=== PATIENT | male | born 1930 | race Caucasian/White ===

== ENCOUNTER 2018-08-14 23:22 | Inpatient (IN) | payer MEDICARE, OTHER ==
[~2018-08-14] VITALS: Ht 177.8 cm; Wt 72.2 kg
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
[2018-08-14 23:51] VITALS: BP 130/67
[2018-08-15] MEDS ORDERED: DONEPEZIL HCL10 MG PO (00:21)
[2018-08-15] MEDS ORDERED: NAMENDA10 MG PO (00:22)
[2018-08-15] MEDS ORDERED: LANOXIN125 MCG PO (00:22)
[2018-08-15] MEDS ORDERED: BENADRYL50 MG PO (00:23)
[2018-08-15] MEDS ORDERED: ACETAMINOPHEN325 MG PO (00:24)
[2018-08-15 00:27] VITALS: BP 130/67; BMI 25.9
--- NOTE | 2018-08-15 02:54 | NUR ---
PATIENT ARRIVED AT 23:30 FROM THE [facility] , BROUGHT BY AND DAUGHTER, AGRESSION WITH AT THE [facility], CALM AND COOPERATIVE ON ADMIT, CODE STATUS IS FULL CODE PER DAUGHTER AND POA, CODE WORD IS KAREEN RETREAT, CONSENTS SIGNED, PHYSICIAN AWARE, WILL CONTINUE TO MONITOR.
[2018-08-15 03:42] LABS: APPEARANCE CLEAR (CLEAR); BILIRUBIN NEGATIVE (NEGATIVE); COLOR YELLOW (YELLOW); GLUCOSE NEGATIVE (NEGATIVE); KETONE NEGATIVE (NEGATIVE); NITRITE NEGATIVE (NEGATIVE); PROTEIN NEGATIVE (NEGATIVE); UROBILINOGEN NORMAL (NORMAL)
[2018-08-15 05:32] LABS: BASOPHILS 0.1 % (0-2); EOSINOPHILS 0.9 % (0-7); HEMATOCRIT 41.4 % (42.0-54.0); HEMOGLOBIN 14.1 g/dL (13.5-17.5); IMMATURE GRANULOCYTES 0.3 % (0-5); LYMPHOCYTES 25.6 % (15-50); MCH 30.4 pg (26.0-34.0); MCHC 34.1 g/dL (31.0-37.0); MCV 89.2 fL (80.0-100.0); MEAN PLATELET VOLUME 9.4 fL (7.4-10.4); MONOCYTES 8.1 % (2-11); PLATELET COUNT 157 10x3/uL (130-400); RBC 4.64 10x6/uL (4.20-6.10); RDW 13.9 % (11.5-14.5)
[2018-08-15 06:01] LABS: ALBUMIN 3.2 g/dL (3.4-5.0); ALKALINE PHOSPHATASE 69 U/L (46-116); ALT (SGPT) 18 U/L (10-68); BILIRUBIN - TOTAL 0.77 mg/dL (0.2-1.3); CALC OSMOLALITY 284 mosm/kg (275-300); CALCIUM 8.7 mg/dL (8.5-10.1); CARBON DIOXIDE 25.1 mmol/L (21.0-32.0); CHLORIDE - SERUM 107 mmol/L (98-107); CHOLESTEROL, TOTAL 170 mg/dL (0-200); DIGOXIN 0.24 ng/mL (0.90-2.00); GLUCOSE 102 mg/dL (74-106); HDL CHOLESTEROL 56 mg/dL (32-96); LDL CHOLESTEROL 101 mg/dL (0-100); LDL-HDL RATIO 1.8 ratio (1.5-3.5); POTASSIUM - SERUM 4.1 mmol/L (3.5-5.1); PROTEIN - SERUM 6.7 g/dL (6.4-8.2); SODIUM 141 mmol/L (136-145); THYROID STIMULATING HORMONE 1.58 uIU/mL (0.36-3.74); TRIGLYCERIDE 65 mg/dL (30-200); UREA NITROGEN 23 mg/dL (7-18); eGFR NON AFRICAN AMERICAN 75 mL/min (90-120)
--- NOTE | 2018-08-15 06:45 | NUR ---
WANDERING INTO OTHER PATIENT'S ROOMS, REQUIRING FREQUENT INTERVENTION AND RE-DIRECTION.
--- NOTE | 2018-08-15 08:00 | NUR ---
AGITATION AND AGGRESSION TOWARDS STAFF NOTED. ATIVAN 0.5 MG AND HALDOL 2 MG ADMIN IM LEFT DELTOID.
--- NOTE | 2018-08-15 08:45 | NUR ---
RESTING QUIETLY IN RECLINER, BREAKFAST COMPLETE, CALM AT THIS TIME.
--- NOTE | 2018-08-15 10:41 | NUR ---
RESTING IN RECLINER IN DAYROOM, DROWSY, CALM, QUIET. NO FURTHER AGGRESSION NOTED. SPOUSE PHONED TO CHECK ON PATIENT'S CONDITION. AWAITING MED ORDERS, CONT POC INCLUDING GROUP THERAPY AND MEDICATIONS ORDERED.
[2018-08-15 14:07] VITALS: BMI 25.8
[2018-08-15 20:07] VITALS: BP 170/75
--- NOTE | 2018-08-15 21:52 | NUR ---
B) patient is alert and oriented to self, very confused, VIEJAS, difficult to redirect, wanders and invades others personal space, I) Administered scheduled medications as orderd, monitored for safety, crushed medications, R) Mediation compliant, restless and wanders, P) Continue plan of care.
--- NOTE | 2018-08-16 10:00 | NUR ---
RECEIVED PATIENT IN DINING ROOM FOR B'FAST, ALERT, RESTLESS, PACING ABOUT UNIT, SHAKING DOORS ATTEMPTING TO EXIT, RE-DIRECTS EASILY. MEDS ADMIN WITH COMPLETE MED COMPLIANCE NOTED. PRESENT FOR GROUP ACTIVITY, BUT PACES ABOUT DAYROOM. CONT POC INCLUDING MEDS AND GROUP THERAPY DIRECTED.
[2018-08-16 19:59] VITALS: BP 130/90
--- NOTE | 2018-08-16 21:37 | NUR ---
RECEIVED IN DAYROOM. WANDERING AROUND. CALM AND COOPERATIVE WITH CARE AND ASSESSMENT. NO AGGRESSIVE BEHAVIOR. REDIRECT AND REORIENT NEEDED. RESTING IN BED WITH EYES CLOSED AT THIS TIME. CONTINUE PLAN OF CARE.
--- NOTE | 2018-08-17 08:00 | NUR ---
AWAKE AND ALERT AT NURSES DESK, BUT VERY CONFUSED. HE COULD NOT VERBALIZE HIS NAME. CALM AND COOPERATIVE WITH CARE AND ASSESSMENT. NO AGGRESSION AT THIS TIME. MEDICATION COMPLIANT CRUSHED IN APPLESAUCE. FALL PRECAUTIONS IN PLACE. WILL CONTINUE PLAN OF CARE.
[2018-08-17 08:29] VITALS: BP 134/71
[2018-08-17 10:30] VITALS: Ht 177.8 cm; Wt 72.2 kg
--- NOTE | 2018-08-17 13:05 | NUR ---
ATIVAN 0.5 MG PO GIVEN FOR AGITATION WITH REDIRECTION.
--- NOTE | 2018-08-17 20:30 | NUR ---
PATIENT ANXIOUS. CONTINUOUSLY ATTMEPTING TO STAND WITHOUT ASSIST. ALARM SOUNDING. UNABLE TO BE REDIRECTED. RESISTIVE TO REDIRECTION. PRN ATIVAN 0.5 MG PO GIVEN FOR ANXIETY.
--- NOTE | 2018-08-17 21:15 | NUR ---
PRN ATIVAN INEFFECTIVE. PATIENT CONTINUES TO BECOME MORE ANXIOUS. CONTINUES TO GET UP WITHOUT ASSIST. YELLS AT STAFF WITH REDIRECTION.
[2018-08-17 22:23] VITALS: BP 143/68
--- NOTE | 2018-08-17 22:37 | NUR ---
RECEIVED IN HALLWAY OUTSIDE OF NURSES STATION. RESTING IN RECLINER WITH EYES OPEN. CALM AND COOPERATIVE WITH CARE AND ASSESSMENT. NO AGGRESSIVE BEHAVIORS. REDIRECT AND REORIENT NEEDED. RESTING IN BED WITH EYES CLOSED AT THIS TIME. CONTINUE PLAN OF CARE.
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
--- NOTE | 2018-08-18 04:30 | NUR ---
PRN INEFFECTIVE. PATIENT CONTINUES TO EXHIBIT ANXIETY. PATIENT RESISTIVE TO REDIRECTION. PATIENT CONTINUOUSLY ATTEMPTING TO GET UP WITHOUT ASSIST. RESISTIVE TO REDIRECTION.
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
--- NOTE | 2018-08-18 18:23 | NUR ---
PATIENT IS AWAKE ANS ALERT, BUT VERY CONFUSED. HE IS CALM WITH ASSESSMENT, BUT GETS ANXIOUS WITH ADL'S AND REDIRECTION. AT TIMES HE YELLS AT STAFF. PROVIDE PRESCRIBED MEDS. COMPLIANT WITH MEDS CRUSHED IN APPLESAUCE. WILL CONTINUE POC.
--- NOTE | 2018-08-18 20:40 | NUR ---
RECEIVED IN [facility]. LAYING IN A RECLINING CHAIR WITH STAFF BY HIS SIDE ONE ON ONE BY HIS SIDE FOR SAFETY. VERY CONFUSED. INCREASING ANXIETY. PRN ATIVAN 0.5 MG GIVEN FOR INCREASING ANXIETY. CONTINUES ONE ON ONE CARE FOR SAFETY. CONTINUE PLAN OF CARE
--- NOTE | 2018-08-18 21:48 | NUR ---
RESTING IN RECLINER WITH EYES CLOSED AT THIS TIME.
[2018-08-19 07:18] LABS: RAPID PLASMA REAGIN Non Reactive (Non Reactive); VITAMIN D 25 HYDROXY 15.5 ng/mL (30.0-100.0)
[2018-08-19 07:42] VITALS: BP 132/66
[2018-08-19 11:13] LABS: FOLATE (FOLIC ACID) - SERUM 11.6 ng/mL (>3.0)
[2018-08-19 20:00] VITALS: BP 113/92
--- NOTE | 2018-08-19 23:06 | NUR ---
RECEIVED IN HALLWAY OUTSIDE OF NURSES STATION. WANDERING AROUND. CALM AND COOPERATIVE WITH CARE AND ASSESSMENT. NO AGGRESSIVE BEHAVIORS. REDIRECT AND REORIENT NEEDED. RESTING IN BED WITH EYES CLOSED AT THIS TIME. CONTINUE PLAN OF CARE.
[2018-08-20 08:01] VITALS: BP 142/67
--- NOTE | 2018-08-20 09:00 | NUR ---
PATIENT ALERT, RESTLESS, PACING, CONFUSED, REQUIRES FREQUENT RE-DIRECTION NOT TO AMBULATE UNASSISTED. UNSTEADY GAIT/POOR BALANCE. MEDS ADMIN PER ORDERS WITH COMPLETE MED COMPLIANCE NOTED. COOPERATIVE WITH CARE AND STAFF ASSIST. CONT POC INCLUDING MEDS AND GROUP THERAPY DIRECTED.
--- NOTE | 2018-08-20 12:48 | NUR ---
PATIENT AGITATED, AGGRESSIVE TOWARD OTHER PATIENTS. ATIVAN 0.5 MG ADMIN IM . LINDY WELL.
--- NOTE | 2018-08-20 14:06 | NUR ---
Nutrition follow-up: Diet: Regular PO intake ~75-100% of most meals Labs reviewed Wt: 161# +BM RDN following.
[2018-08-20 20:20] VITALS: BP 126/64
--- NOTE | 2018-08-20 21:51 | NUR ---
B) Patient is alert and oriented to self, very confused and wants to wander, unsteady and resistant to redirection. I) Administered scheduled medications as ordered, redirected as needed, monitored for safety R) Mediation compliant, restless at times P) Continue plan of care.
[2018-08-21 07:37] VITALS: BP 132/65
[2018-08-21 20:00] VITALS: BP 177/77
--- NOTE | 2018-08-21 22:49 | NUR ---
B) Patient is alert and oriented to self, very confused and wanders at times, restless and thinks he has to do something at times, I) Administered scheduled medications as ordered, redirected as needed, monitored for safety, R) Medications compliant, resting with eyes closed in bed now, P) Continue plan of care.
[2018-08-22 08:41] VITALS: BP 120/57
--- NOTE | 2018-08-22 08:48 | PN ---
PATIENT:JOSE ALFREDO RAJPUT MEDICAL RECORD: [id number] LOCATION:[facility] ADMISSION DATE: 08/14/18 PROGRESS NOTE DATE OF SERVICE: 08/21/2018 SUBJECTIVE: Mr. Rajput is an 87-year-old male, who [facility], alert and oriented times 1. He has gotten agitated to her when she tried to redirect with his ADLs. The patient until a few days ago was requiring frequent p.r.n.'s at night, now less so. He is by report sleeping throughout the night and has required no p.r.n.'s in the last few days. He is a fall risk as he is unsteady and he is not able to respond to redirection whatsoever or understand that he needs to walk with assist. He is eating 50/50 at 75%. Last bowel movement on . OBJECTIVE: LATEST VITAL SIGNS: 98.4, 82, 16, 132/65, and 98%. ASSESSMENT: Unchanged. PLAN: We will continue to monitor for behaviors. If his lack of aggression continues, we will consider discharge; however, the patient will remain somewhat of a fall risk secondary to his just physical and balance issues. Case discussed with nursing, chart reviewed and patient interviewed. TRANSINT:[id number] Voice Confirmation ID: [id number] DOCUMENT ID: [id number] JOSE F AQUINO MD at 0848 CC: [id number] DICTATION DATE: 08/21/18 1410 VACUUM METALIZING SUPERVISOR: 08/21/18 1513 ADM IN [place] [id number] [place] [id number]
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
--- NOTE | 2018-08-22 11:45 | NUR ---
B) The patient is confused. He knows his name only. He wanders and he is pleasant, but he does try all the doors and he bangs on them quite hard and tries to jerk on them to open them. He does not understand simple commands. He knows his name, but has poor insight into his situation. I) Provide prescribed meds, redirect as needed. R) The patient is complaint with meds and unit milieu. P) Continue POC.
--- NOTE | 2018-08-22 16:00 | NUR ---
The patient's asked me "What has he been diagnosed with?" Did look at Dr. Limon's psychiatric consult. Let her know that Dr. Limon says he has Alzhimer's." She said "Oh, ok. I just can not take him with him like that, will someone help us with finding places that will be good for him?" Explained to her that Matti Mueller will assist her with names of places and then they can check them out and decide. She said "Ok"
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
[2018-08-22 20:21] VITALS: BP 141/78
--- NOTE | 2018-08-23 07:30 | NUR ---
REC'D PT IN HALLWAY WANDERING. ALERT TO PERSON ONLY. CALM AND COOPERATIVE WITH ASSESSMENT. REDIRECT AND REORIENT NEEDED. NO AGGRESSION NOTED AT THIS TIME. MED COMPLIANT. FALL PRECAUTIONS IN PLACE. WILL CPOC.
[2018-08-23 08:00] VITALS: BP 122/81
--- NOTE | 2018-08-23 20:59 | NUR ---
RECEIVED IN DAYROOM. SITTING IN A CHAIR WITH PEERS AT HIS SIDE. CALM AND COOPERATIVE WITH CARE AND ASSESSMENT. NO SIGNS OF AGGRESSION. REDIRECT AND REORIENT NEEDED. CONTINUES TP SIT CALMLY. CONTINUE PLAN OF CARE
[2018-08-23 23:51] VITALS: BP 138/80
--- NOTE | 2018-08-24 07:30 | NUR ---
REC'D PT PACING IN HALLWAY. CALM AND COOPERATIVE WITH ASSESSMENT. NO AGGRESSION NOTED. PT IS ALERT AND ORIENTED TO PERSON ONLY. REDIRECT AND REORIENT NEEDED. MED COMPLIANT. FALL PRECAUTIONS IN PLACE. WILL CPOC.
[2018-08-24 08:52] VITALS: BP 172/55
--- NOTE | 2018-08-24 14:53 | PN ---
PATIENT:JOSE ALFREDO GREER MEDICAL RECORD: [id number] LOCATION:[facility] ADMISSION DATE: 08/14/18 PROGRESS NOTE DATE OF SERVICE: 08/23/2018 SUBJECTIVE: The patient's case was discussed with staff. He has no new complaint. OBJECTIVE: The patient is in good behavioral control. He has very poor insight about his condition. ASSESSMENT: Senile dementia of the Alzheimer's type with behavioral disturbances. PLAN: The patient will have his Remeron discontinued. Remeron has a significant antihistaminic effect and that is a relative contraindication in individuals with dementia. TRANSINT:[id number] Voice Confirmation ID: [id number] DOCUMENT ID: [id number] TONI PRATER MD at 1453 CC: [id number] DICTATION DATE: 08/23/18 1540 FIRER LOCOMOTIVE CRANE: 08/23/18 1636 ADM IN [facility] [address] [place] [address]
[2018-08-24 20:06] VITALS: BP 160/85
--- NOTE | 2018-08-25 04:12 | NUR ---
RECEIVED IN DAYROOM. WANDERING AROUND. CALM AND COOPERATIVE WITH CARE AND ASSESSMENT. NO AGGRESSIVE BEHAVIORS. REDIRECT AND REORIENT NEEDED. RESTING IN BED WITH EYES CLOSED AT THIS TIME. CONTINUE PLAN OF CARE.
--- NOTE | 2018-08-25 07:30 | NUR ---
REC'D PT IN HALLWAY WANDERING. PT IS ALERT AND ORIENTED TO PERSON ONLY. CALM AND COOPERATIVE WITH ASSESSMENT. PT IS VERY CONFUSED. MED COMPLIANT. REDIRECT AND REORIENT NEEDED. FALL PRECAUTIONS IN PLACE. WILL CPOC.
[2018-08-25 08:32] VITALS: BP 170/88
--- NOTE | 2018-08-25 14:35 | NUR ---
PATIENT WANDERING ABOUT DAYROOM, VERY RESTLESS AND DIFFICULT TO REDIRECT. ATIVAN 0.5 MG PO GIVEN TO PATIENT.
--- NOTE | 2018-08-25 15:05 | PN ---
PATIENT:JOSE ALFREDO GREER MEDICAL RECORD: [id number] LOCATION:[facility] ADMISSION DATE: 08/14/18 PROGRESS NOTE DATE OF SERVICE: 08/24/2018 SUBJECTIVE: The patient's case was discussed with staff. He has no new complaint. OBJECTIVE: The patient is quite confused and only oriented to person today. He has very limited insight about his situation. He has not been aggressive today. ASSESSMENT: Senile dementia of the Alzheimer's type with behavioral disturbances. PLAN: Current medicines have been reviewed and will be maintained. Long-term prognosis is guarded. I am going to discontinue his Lamictal secondary to the lack of clinical indication that I can perceive. TRANSINT:[id number] Voice Confirmation ID: [id number] DOCUMENT ID: [id number] TONI PRATER MD at 1505 CC: [id number] DICTATION DATE: 08/24/18 1516 FRONT DESK WORKER: 08/24/18 1525 ADM IN [place] [id number] [place] [id number]
--- NOTE | 2018-08-25 20:58 | NUR ---
RECEIVED IN HALLWAY. SITTING IN WHEELCHAIR. VERY CONFUSED. NO SIGNS OF AGGRESSION. REDIRECT AND REORIENT NEEDED. RESTING QUIETLY IN BED AT THIS TIME. CONTINUE PLAN OF CARE
--- NOTE | 2018-08-26 08:00 | NUR ---
REC'D PT PACING IN HALLWAY AWAITING BREAKFAST. RESP EVEN AND NONLABORED. NO ACUTE DISTRESS NOTED. PATIENT ORIENTED TO SELF ONLY. WANDERS AT TIMES. TRYING TO OPEN THE DOORS. MED COMPLIANT. WILL CONT PLAN OF CARE.
--- NOTE | 2018-08-26 13:17 | PN ---
PATIENT:JOSE ALFREDO GREER MEDICAL RECORD: [id number] LOCATION:[facility] ADMISSION DATE: 08/14/18 PROGRESS NOTE DATE OF SERVICE: 08/25/2018 SUBJECTIVE: The patient's case was discussed with staff. He has no new complaint. OBJECTIVE: The patient denies intent to harm himself or others. He is tolerating his medicines well. Eye contact is fair. ASSESSMENT: Senile dementia of the Alzheimer's type with behavioral disturbances. PLAN: The patient had some significant agitation today. I am going to treat him with a low dose of Trilafon. He will be monitored for clinical changes associated with it. TRANSINT:[id number] Voice Confirmation ID: [id number] DOCUMENT ID: [id number] TONI PRATER MD at 1317 CC: [id number] DICTATION DATE: 08/25/18 1547 RETAIL SUPPORT ASSOCIATE: 08/25/18 1554 ADM IN [place] [address] [place] [id number]
--- NOTE | 2018-08-26 19:14 | NUR ---
PATIENT WANDERING IN DAY AREA. NO ACUET DISTRESS NOTED. RESP EVEN AND NONLABORED. HELD PATIENT LISINPRIL 20 MG DUE TO BLOOD PRESSURE: 90/60. NO BEHAVIORS NOTED OTHER THAN AMBULATING. WILL CONT PLAN OF CARE.
--- NOTE | 2018-08-26 19:37 | NUR ---
RECEIVED IN HALLWAY OUTSIDE OF NURSES STATION. VERY CONFUSED. WANDERING AROUND. CALM AND COOPERATIVE WITH CARE AND ASSESSMENT. NO AGGRESSIVE BEHAVIOR. REDIRECT AND REORIENT NEEDED. CONTINUES TO WANDER AROUND AT THIS TIME. CONTINUE PLAN OF CARE.
--- NOTE | 2018-08-27 07:45 | NUR ---
REC'D PATIENT WANDERING IN ROOM THIS AM. RESP EVEN AND NONLABORED. NO ACUTE DISTRESS NOTED. REDIRECT AND REORIENT NEEDED. PAIENT ALERT TO SELF ONLY. PT WANDERS ATTEMPTING TO OPEN DOORS. MED COMPLIANT. WILL CONT PLAN OF CARE. CALL LIGHT IN REACH.
--- NOTE | 2018-08-27 10:20 | NUR ---
NURSE ADMINISTERED ATIVAN 0.[address] PRATER ORDER. PATIENT TOLERATED WELL. WILL REASSES Q 1 HOUR.
--- NOTE | 2018-08-27 11:30 | NUR ---
PATIENT IS NOT ANXIETY PREVIOUSLY. PRN EFFECTIVE AT THIS TIME.
--- NOTE | 2018-08-27 13:47 | PN ---
PATIENT:JOSE ALFREDO GREER MEDICAL RECORD: [id number] LOCATION:[facility] ADMISSION DATE: 08/14/18 PROGRESS NOTE DATE OF SERVICE: 08/26/2018 SUBJECTIVE: The patient's case was discussed with staff. He has no new complaint. OBJECTIVE: The patient is sleeping well. He is eating reasonably well. He wanders a great deal and engages in exit seeking behavior. Attempts to redirect him are usually effective if they are done in a patient and considerate way. At other times, he can become quite agitated. ASSESSMENT: Senile dementia of the Alzheimer's type with behavioral disturbances. PLAN: The patient is tolerating medicines well. I anticipate he can be returned to the [facility] soon. His lives there. He is probably more appropriate for a more restrictive dementia unit; but given the circumstances, his is not going to want to be from him and I think it is not unreasonable to give him another trial there, although I must say I am not optimistic it is going to be very successful, but I am making every effort I can to keep him and his together consistent with safety of others. TRANSINT:[id number] Voice Confirmation ID: [id number] DOCUMENT ID: [id number] TONI PRATER MD at 1347 CC: [id number] DICTATION DATE: 08/26/18 1647 LACE INSPECTOR: 08/26/18 2201 ADM IN [facility] [address] [place] [address]
--- NOTE | 2018-08-27 18:49 | NUR ---
PATIENT SITTING IN CHAIR WITH EYES CLOSED. RESP EVEN AND NONLABORED. NO ACUTE DISTRESS NOTED. PATIENT PACING ALL DAY AND IS EASILY REDIRECTED AT TIMES. MED COMPLIANT. EATS MEALS WHEN DIRECTED. WILL CONT PLAN OF CARE.
[2018-08-27 23:17] VITALS: BP 148/91
--- NOTE | 2018-08-28 01:18 | NUR ---
B) Patient is alert and oriented to self, very confused and wanders, misunderstands everything, I) Administered scheduled medications as ordered, monitored for safety, redirected as needed, R) Mediation compliant, calm but difficult to redirect. P) Continue plan of care.
--- NOTE | 2018-08-28 07:45 | NUR ---
RECIEVED PT PACING HALLWAY. PT WANDERS INTO OTHER PATIENT ROOMS. VERY HARD TO REDIRECT. CONFUSED AND ORIENTED TO SELF. NONSKID SOCKS ON. NO AGGRESSION NOTED. WILL CONT TO MONITOR.
[2018-08-28 09:21] VITALS: BP 156/71
--- NOTE | 2018-08-28 12:46 | NUR ---
Nutrition follow-up: Diet: Regular PO intake ~75% average of meals No new wt +BM PO intake good at this time. RDN following.
--- NOTE | 2018-08-28 14:15 | PN ---
PATIENT:JOSE ALFREDO GREER MEDICAL RECORD: [id number] LOCATION:[facility] ADMISSION DATE: 08/14/18 PROGRESS NOTE DATE OF SERVICE: 08/27/2018 SUBJECTIVE: The patient's case was discussed with staff. He has no new complaint. OBJECTIVE: The patient denies intent to harm himself or others. He tolerates his medicines well. Eye contact is poor. He did have some aggression with the nurse today, but I am not sure if that was an isolated event. I am going to maintain his current medicines, which I have reviewed, and will try hard not to add additional medications to his regimen if it is possible to do so. TRANSINT:[id number] Voice Confirmation ID: [id number] DOCUMENT ID: [id number] TONI PRATER MD at 1415 CC: [id number] DICTATION DATE: 08/27/18 1529 TITLE SUPERVISOR: 08/27/182021 ADM IN [place] [address] [place] [address]
--- NOTE | 2018-08-28 18:20 | NUR ---
PATIENT SITTING IN RECLINER CHAIR WITH EYES CLOSED. RESP EVEN AND NONLABORED. NO ACUTE DISTRESS NOTED. AMBULATE WITH ASSISTANCE. CONFUSED ONRIENTED TO SELF ONLY. MED COMPLIANT. PT REC'D A SHOWER AND TOLERATED WELL. CHAIR ALARM IN PLACE AND ACTIVE. WILL CONT PLAN OF CARE. WILL CONT TO MONITOR Q 15 MINS FOR SAFETY.
[2018-08-28 20:00] VITALS: BP 130/70
--- NOTE | 2018-08-28 22:52 | NUR ---
PATIENT IS CONFUSED, PLEASANT, HAS TO BE REDIRECTED OVER AND OVER, COMPLIANT WITH MEDS, NO ADVERSE REACTION NOTED. WILL FOLLOW POC
--- NOTE | 2018-08-29 07:50 | NUR ---
RESTING QUIETLY IN BED ON RIGHT SIDE.
--- NOTE | 2018-08-29 10:13 | NUR ---
ASSESSMENT COMPLETE. DISORIENTED TO TIME,PLACE AND SITUATION. BRUISING NOTED TO BILAT ARMS. WHEN ASKED QUESTIONS, ANSWERS WITH INAPPROPRIATE WORDS. WANDERS FREQUENTLY IN HALLWAY.
--- NOTE | 2018-08-29 10:36 | PN ---
PATIENT:JOSE ALFREDO GREER MEDICAL RECORD: [id number] LOCATION:[facility] ADMISSION DATE: 08/14/18 PROGRESS NOTE DATE OF SERVICE: 08/28/2018 SUBJECTIVE: The patient's case was discussed with staff. He has no new complaint. OBJECTIVE: The patient is in good behavioral control. He is tolerating his medicines well. Eye contact is fair. ASSESSMENT: Senile dementia of the Alzheimer's type with behavioral disturbances. PLAN: Current medicines and therapies have been reviewed, both will be maintained. I anticipate he can be transitioned out of the hospital today. TRANSINT:[id number] Voice Confirmation ID: [id number] DOCUMENT ID: [id number] TONI PRATER MD at 1036 CC: [id number] DICTATION DATE: 08/28/18 153 DATA SCIENCES DIRECTOR: 08/28/18 2209 ADM IN [place] [id number] [place] [id number]
--- NOTE | 2018-08-29 12:00 | NUR ---
NO CHANGES NOTED AT THIS TIME.
--- NOTE | 2018-08-29 15:38 | NUR ---
VISITING WITH FAMILY.
[2018-08-29 20:00] VITALS: BP 126/66
--- NOTE | 2018-08-30 02:57 | NUR ---
B) Patient is alert and oriented to self, very confused, misunderstands everything, wanders at times, I) Administered scheduled medications as, monitored for safety, R) medication compliant, pleasant toward staff, P) Continue plan of care.
[2018-08-30 07:00] VITALS: BP 109/56
--- NOTE | 2018-08-30 09:40 | PN ---
PATIENT:JOSE ALFREDO GREER MEDICAL RECORD: [id number] LOCATION:[facility] ADMISSION DATE: 08/14/18 PROGRESS NOTE DATE OF SERVICE: 08/29/2018 SUBJECTIVE: The patient's case was discussed with staff. He has no new complaint. OBJECTIVE: The patient is in good behavioral control. He has limited insight about his situation. He is tolerating his medicines well. ASSESSMENT: Senile dementia of the Alzheimer's type with behavioral disturbances. PLAN: Current medicines have been reviewed and will be maintained. His long-term prognosis is guarded. TRANSINT:[id number] Voice Confirmation ID: [id number] DOCUMENT ID: [id number] TONI PRATER MD at 0940 CC: [id number] DICTATION DATE: 08/29/18 1215 COMMUNITY YOUTH SECRETARY: 08/29/18 1653 ADM IN [place] [id number] [place] [id number]
--- NOTE | 2018-08-30 12:57 | NUR ---
RECEIVED PATIENT IN DINING ROOM THIS MORNING FOR B'FAST, ALERT, CALM, VERY CONFUSED. MEDS ADMIN PER ORDERS WITH COMPLETE MED COMPLIANCE NOTED. COOPERATIVE WITH GROUP AND STAFF REQUESTS. CONT POC DIRECTED.
[2018-08-30 20:08] VITALS: BP 125/68
--- NOTE | 2018-08-30 21:18 | NUR ---
RECEIOVED IN DINING AREA. WALKING ABOUT. CONFUSED. CALM AND COOPERATIVE WITH CARE AND ASSESSMENT. NO SIGNS OF AGGRESSION. REDIRECT AND REORIENT NEEDED. CONTINUES TO WALK ABOUT DAY AREA. CONTINUE PLAN OF CARE
[2018-08-31 07:00] VITALS: BP 127/63
--- NOTE | 2018-08-31 11:37 | NUR ---
RECEIVED PATIENT IN DINING ROOM FOR B'FAST, ALERT, RESTLESS, PACING ABOUT UNIT, VERY FORGETFUL. MEDS ADMIN PER ORDERS WITH COMPLETE MED COMPLIANCE NOTED. COOPERATIVE, RE-DIRECTS EASLIY. CONT POC DIRECTED.
--- NOTE | 2018-08-31 14:35 | PN ---
PATIENT:JOSE ALFREDO GREER MEDICAL RECORD: [id number] LOCATION:[facility] ADMISSION DATE: 08/14/18 PROGRESS NOTE DATE OF SERVICE: 08/30/2018 SUBJECTIVE: The patient's case was discussed with staff. He has no new complaint. OBJECTIVE: The patient is eating and sleeping well. He has not been aggressive. I anticipate that if this level of improvement maintains, he can be discharged soon. ASSESSMENT: Senile dementia of the Alzheimer's type with behavioral disturbances. PLAN: The patient will be transitioned out of the hospital and to the assisted living center soon. His long-term prognosis is guarded. TRANSINT:[id number] Voice Confirmation ID: [id number] DOCUMENT ID: [id number] TONI PRATER MD at 1435 CC: [id number] DICTATION DATE: 08/30/18 0952 MANAGER OF DATA: 08/30/18 1348 ADM IN [facility] [address] [place] [address]
[2018-08-31] MEDS ORDERED: PERPHENAZINE2 MG PO (15:47)
[2018-08-31] MEDS ORDERED: NAMENDA5 MG PO (15:47)
[2018-08-31] MEDS ORDERED: Aricept PO (15:47)
[2018-08-31] MEDS ORDERED: MELATONIN 3 MG1 TAB PO (15:48)
[2018-08-31] MEDS ORDERED: SENNA8.6 MG PO (15:48)
[2018-08-31] MEDS ORDERED: VITAMIN D5000 UNIT PO (15:48)
[2018-08-31] MEDS ORDERED: MEGACE40 MG PO (15:48)
--- NOTE | 2018-08-31 20:19 | NUR ---
RECEIVED IN DAYROOM. VERY CONFUSED. WANDERING AROUND. CALM AND COOPERATIVE WITH CARE AND ASSESSMENT. NO AGGRESSIVE BEHAVIORS. INTRUSIVE AT TIMES. REDIRECT AND REORIENT NEEDED. CONTINUES TO WANDER AROUND DAYROOM AT THIS TIME. CONTINUE PLAN OF CARE.
[2018-09-01 02:22] VITALS: BP 136/84
[2018-09-01 08:00] VITALS: BP 97/54
--- NOTE | 2018-09-01 09:41 | PN ---
PATIENT:JOSE ALFREDO GREER MEDICAL RECORD: [id number] LOCATION:[facility] ADMISSION DATE: 08/14/18 PROGRESS NOTE DATE OF SERVICE: 08/31/2018 SUBJECTIVE: The patient's case was discussed with staff. He has no new complaint. The patient is not eating particularly well and it is with difficulty that the staff can get him to consume about half of what is offered to him. He is quite confused. ASSESSMENT: Senile dementia of the Alzheimer's type with behavioral disturbances. PLAN: The patient is going to be started on Megace to assist with his appetite suppression. He will be monitored for clinical changes associated with its use. His long-term prognosis is guarded. TRANSINT:[id number] Voice Confirmation ID: [id number] DOCUMENT ID: [id number] TONI PRATER MD at 0941 CC: [id number] DICTATION DATE: 08/31/18 145 GRAVITY METER OBSERVER: 08/31/18 1459 ADM IN [place] [id number] [place] [address]
--- NOTE | 2018-09-01 11:30 | NUR ---
DISCHARGED TO [facility]. BELONGINGS COLLECTED AND SENT WITH PATIENT. ATTEMPTED PHONE CALL TO - NO ANSWER.
--- NOTE | 2018-09-02 12:50 | PN ---
PATIENT:JOSE ALFREDO GREER MEDICAL RECORD: [id number] LOCATION:[facility] ADMISSION DATE: 08/14/18 PROGRESS NOTE DATE OF SERVICE: 09/01/2018 SUBJECTIVE: The patient's case was discussed with staff. He has no new complaint. OBJECTIVE: The patient denies intent to harm himself or others. He has been in good behavioral control. He is sleeping and eating reasonably well. ASSESSMENT: Senile dementia of the Alzheimer's type with behavioral disturbances. PLAN: The patient will be transitioned out of the hospital today. His long-term prognosis is guarded. TRANSINT:[id number] Voice Confirmation ID: [id number] DOCUMENT ID: [id number] TONI PRATER MD at 1250 CC: [id number] DICTATION DATE: 09/01/18 0954 CITY ENGINEER: 09/01/18 1020 DIS IN 09/01/18 [facility] [address] [place] [address]
== END 2018-09-01 11:30 | disposition home or self-care (01) | DRG 57 ==
LOC: D.PSYCH 23:22
PROVIDERS: ADMIT Psychiatry & Neurology Psychiatry; ATTEND Psychiatry & Neurology Psychiatry
DX: G30.1 Alzheimer's disease with late onset (principal); F02.81 Dementia in other diseases classified elsewhere, unspecified severity, with behavioral disturbance; I49.9 Cardiac arrhythmia, unspecified; G47.00 Insomnia, unspecified; K59.00 Constipation, unspecified; E55.9 Vitamin D deficiency, unspecified; R03.0 Elevated blood-pressure reading, without diagnosis of hypertension; H91.90 Unspecified hearing loss, unspecified ear

== ENCOUNTER 2018-12-10 13:23 | Inpatient (IN) | payer MEDICARE ==
[~2018-12-10] VITALS: Ht 182.9 cm; Wt 65.3 kg
[~2018-12-10 13:23] MED LIST: ACETAMINOPHEN325 MG PO; Aricept PO; BENADRYL50 MG PO; DONEPEZIL HCL10 MG PO; LANOXIN125 MCG PO; MEGACE40 MG PO; MELATONIN 3 MG1 TAB PO; NAMENDA10 MG PO; NAMENDA5 MG PO; PERPHENAZINE2 MG PO; SENNA8.6 MG PO; VITAMIN D5000 UNIT PO
--- NOTE | 2018-12-10 18:11 | NUR ---
PATIENT ARRIVED TO UNIT ACCOMPANIED BY SPOUSE AND DTR. SPOUSE SIGNED CONSENTS. NO VALUABLES. VITAL SIGNS AND WEIGHT MEASURED. T 97.0, B/P 122/56, P 88, R 18, SPO2 96%. WEIGHT 144 LBS.
[2018-12-10] MEDS ORDERED: LANOXIN125 MCG PO (23:38)
[2018-12-10] MEDS ORDERED: MEGACE40 MG PO (23:39)
[2018-12-10] MEDS ORDERED: MELATONIN10 M1 PO (23:39)
[2018-12-10] MEDS ORDERED: NAMENDA5 MG PO (23:40)
[2018-12-10] MEDS ORDERED: SENNA LAXATIVE8.6 MG PO (23:41)
[2018-12-10] MEDS ORDERED: PERPHENAZINE4 MG PO (23:41)
[2018-12-10] MEDS ORDERED: RESTORIL7.5 MG PO (23:42)
[2018-12-10] MEDS ORDERED: VITAMIN D31000 UNIT PO (23:43)
--- NOTE | 2018-12-11 01:13 | NUR ---
PT ADMITTED TO UNIT FOR WANDERING, INCREASED CONFUSION, SLINGING POOP AND IS COMBATIVE WITH ADL'S. HIS CODE STATUS IS A DNR. HIS CODE WORD IS KAREEN RETREAT. HE IS ALERT AND ORIENTED TO SELF ONLY. HE AMBULATES BY HISELF. HIS VALUABLES HAVE BEEN LABELED WITH PT STICKER AND SENT TO LOCKED STORAGE. HE IS CALM BUT DIFFICULT TO REDIRECT. WILL CONTINUE TO MONITOR.
[2018-12-11 01:24] VITALS: BP 122/56; BMI 20.7
[2018-12-11 07:56] LABS: BASOPHILS 0.2 % (0-2); EOSINOPHILS 1.1 % (0-7); HEMATOCRIT 39.9 % (42.0-54.0); HEMOGLOBIN 13.9 g/dL (13.5-17.5); IMMATURE GRANULOCYTES 0.3 % (0-5); LYMPHOCYTES 18.8 % (15-50); MCH 30.8 pg (26.0-34.0); MCHC 34.8 g/dL (31.0-37.0); MCV 88.3 fL (80.0-100.0); MEAN PLATELET VOLUME 9.9 fL (7.4-10.4); NEUTROPHILS 70.6 % (40-80); PLATELET COUNT 176 10x3/uL (130-400); RBC 4.52 10x6/uL (4.20-6.10); RDW 13.8 % (11.5-14.5); WBC 9.7 10x3/uL (4.8-10.8)
[2018-12-11 08:33] LABS: ALBUMIN 3.3 g/dL (3.4-5.0); ANION GAP 14.9 mmol/L (8-16); BILIRUBIN - TOTAL 1.25 mg/dL (0.2-1.3); CALCIUM 8.6 mg/dL (8.5-10.1); CARBON DIOXIDE 24.2 mmol/L (21.0-32.0); CHOL - HDL RATIO 4.1 ratio (2.3-4.9); CREATININE - SERUM 1.2 mg/dL (0.6-1.3); LDL-HDL RATIO 2.9 ratio (1.5-3.5); POTASSIUM - SERUM 4.1 mmol/L (3.5-5.1); PROTEIN - SERUM 6.4 g/dL (6.4-8.2); THYROID STIMULATING HORMONE 2.01 uIU/mL (0.36-3.74)
[2018-12-11 09:08] VITALS: BMI 20.6
[2018-12-11 09:36] VITALS: BP 78/60
--- NOTE | 2018-12-11 11:10 | NUR ---
B) The patient is awake and he ambulates independently. He has poor insight into his situation. He did have a fall and has a skin tear on his right elbow. I) Notified Jill Dyer, Special Education Educational Assistant and Latasha Krause APN, and the patient's family at 1117, Spoke to the son in law at 1130 and let him know that the patient fell and sustained a skin tear. He was appreciative that we called him. R) The patient is calm, but nervous. P) Continue POC.
[2018-12-11 16:26] VITALS: Ht 182.9 cm; Wt 65.3 kg
--- NOTE | 2018-12-11 21:25 | NUR ---
PATIENT IS CONFUSED, WANDERS AROUND, HARD TO REDIRECT, COMPLIANT WITH MEDS. NEEDS HELP WIHT ADL'S. WILL FOLLOW POC
[2018-12-11 21:26] VITALS: BP 120/51
--- NOTE | 2018-12-12 07:40 | NUR ---
B) The patient is awake and he is ambulating. He is confused and has poor insight into his situation. He knows his name, but he does not know his surroundings or time. He has not shown any aggression, but he does try all of the doors and if he is not closely monitored he gets into the trash and other things and can make a mess. I) Provide prescribed meds. R) The patient is usually good about taking his meds crushed in food or pudding. P) Continue POC.
[2018-12-12 19:05] VITALS: BP 112/60
[2018-12-12 20:36] VITALS: BP 102/53
--- NOTE | 2018-12-12 21:27 | NUR ---
PATIENT IS CONFUSED, WANDERS AIMLESSLY AT TIMES, COMPLIANT WITH MEDS, DOES NOT MAKE NEEDS KNOWN, WILL FOLLOW POC
[2018-12-13 08:00] VITALS: BP 144/101
--- NOTE | 2018-12-13 09:00 | NUR ---
PATIENT SITTING IN CHAIR AWAITING BREAKFAST. STAFF MEMBER ATTEMPT TO ASSIST PATIENT TO SIT BACK FURTHER IN THE CHAIR. PT BECAME COMBATIVE WITH STAFF MEMBER, YELLING OUT, SPITING AT STAFF. UNABLE TO REDIRECT AT THAT TIME. ATIVAN 0.5 MG AND HALDOL 2 MG IM GIVEN PER DR. PRATER ORDER. WILL REASSESS Q 1 HOUR.
--- NOTE | 2018-12-13 10:00 | NUR ---
PT CALM AT THIS TIME. PRN EFFECTIVE. ALLOWED STAFF MEMEBER TO CHANGE BANDAGES TO ARM WHERE SKIN TEAR IS. CLEAN AND WRAPPED.
--- NOTE | 2018-12-13 18:38 | NUR ---
NURSE CHANGED PT BANDAGES DUE TO BLEEDING AROUND THE BANDAGE. MEPILEX APPLIED AND WRAPPED.
--- NOTE | 2018-12-13 19:58 | NUR ---
RECEIVED IN DAYROOM, SITTING IN A CHAIR AT THE TABLE. PEERS AT HIS SIDE. CALM AND COOPERATIVE WITH CARE AND ASSESSMENT. CONFUSED. REDIRECT AND REORIENT NEEDED. CONTINUES TO SIT CALMLY. CONTINUE PLAN OF CARE
[2018-12-13 22:48] VITALS: BP 102/50
[2018-12-14 08:00] VITALS: BP 143/63
--- NOTE | 2018-12-14 17:17 | NUR ---
RECEIVED PT THIS MORNING AT B'FAST, CONFUSED, CALM. MEDS CRUSHED AND MIXED WITH PUDDING AND ADMIN PER ORDERS WITH COMPLETE MED COMPLIANCE NOTED. COOPERATIVE, NO AGGRESSION NOTED. CONT POC DIRECTED.
[2018-12-14 20:23] VITALS: BP 181/93
--- NOTE | 2018-12-14 21:41 | NUR ---
RECEIVED IN DAYROOM. SITTING AT TABLE WITH PEERS AT HIS SIDE. CALM AND COOPERATIVE WITH CARE AND ASSESSMENT. REDIRECT AND REORIENT NEEDED. CONTINUES TO SIT CALMLY IN DAYROOM. CONTINUE PLAN OF CARE
[2018-12-15 08:00] VITALS: BP 170/90
--- NOTE | 2018-12-15 10:00 | NUR ---
LE- RECEIVED PT IN DINING ROOM FOR B'FAST, APPETITE POOR, CONFUSED, CALM, REMOVES CLOTHING. MEDS ADMIN PER ORDERS WITH COMPLETE MED COMPLIANCE NOTED. COOPERATIVE WITH PLAN OF CARE. CONT POC DIRECTED.
[2018-12-15 20:10] VITALS: BP 135/85
--- NOTE | 2018-12-15 20:31 | NUR ---
RECEIVED IN DAYROOM. SITTING IN A CHAIR WITH PEERS AT HIS SIDE. CALM AND COOPERATIVE WITH CARE AND ASSESSMENT. REDIRECT AND REORIENT NEEDED. CONTINUES TO SIT CALMLY IN CHAIR. CONTINUE PLAN OF CARE
[2018-12-16 09:11] VITALS: BP 175/74
--- NOTE | 2018-12-16 16:41 | NUR ---
PT. RECEIVED IN DINING ROOM AT B'FAST, RESTING QUIETLY IN RECLINER, EYES CLOSED, AROUSES TO VOICE AND TOUCH, ORIENTED TO SELF. MEDS ADMIN PER ORDERS, COMPLIANT WITH MEDS. COOPERATIVE, NO AGGRESSION OR ADVERSE BEHAVIORS NOTED. CONT POC DIRECTED.
[2018-12-16 20:55] VITALS: BP 110/71
--- NOTE | 2018-12-16 23:46 | NUR ---
REC'D SITTING IN THE DAYROOM. EYES CLOSED. NOT ACKNOWLEDGING STAFF WHEN APPROACHED. NO INTERACTION WITH PEERS. APPEARS TO MOSTLY SLEEP. ADMINISTER MEDS PER ORDERS Q SHIFT AND MONITOR COMPLIANCE. PROMPT PATIENT TO INTERACT WITH STAFF AND PEERS. MED COMPLIANT. CONTINUES TO LAY WITH EYES CLOSED AND DOES NOT INTERACT VERBALLY. CONTIMUE POC AND PROVIDE SAFE ENVIRONMENT.
--- NOTE | 2018-12-17 10:00 | NUR ---
PATIENT IS VERY DROWSY AND LEGERATIC THIS SHIFT. WILL RESPOND TO VOICE AND TOUCH. NURSE HELD MEDICATIONS DUE TO PT BEING DROWSY. MAX ASSIST WITH ADLS. PT FED WITH MEALS. PT IS FRIENDLY. NONCOMBATIVE WITH STAFF. CHAIR ALARM IN PLACE AND ACTIVE.
--- NOTE | 2018-12-17 10:41 | NUR ---
NUTRITION F/U PT ON REG DIET, ENSURE WITH MEALS. RECEIVING MEGACE. PO INTAKE VARIES FROM MEAL TO MEAL. NOTE WT INCREASE FROM ADMIT WT OF 144#. WILL CONTINUE TO PROVIDE DIET AND ENSURE. MONITOR PO INTAKE AND WT. RD FOLLOWING
--- NOTE | 2018-12-17 12:00 | NUR ---
SPOKE WITH TRI DALE ABOUT PATIENT DISCHARGE PLACEMENT AND CURRENT MEDICATIONS. EXPLAINED THE MED ADJUSTMENT AND ADDED MEDS. VERBALIZED UNDERSTANDING. NURSE TOLD HER SHE WOULD PASS ALONG FOR HER TO GET IN TOUCH WITH HER WHEN BACK IN THE OFFICE. VERBALZIED UNDERSTANDING.
[2018-12-17 20:01] VITALS: BP 119/64
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
[2018-12-18 08:30] VITALS: BP 149/66
--- NOTE | 2018-12-18 12:07 | NUR ---
Held the digoxin as his pulse is 59.
[2018-12-18 14:33] LABS: BASOPHILS 0.1 % (0-2); EOSINOPHILS 2.2 % (0-7); IMMATURE GRANULOCYTES 0.5 % (0-5); MCH 31.4 pg (26.0-34.0); MCHC 34.1 g/dL (31.0-37.0); MCV 91.9 fL (80.0-100.0); MONOCYTES 9.7 % (2-11); NEUTROPHILS 72.5 % (40-80); PLATELET COUNT 175 10x3/uL (130-400); RBC 4.46 10x6/uL (4.20-6.10); RDW 13.9 % (11.5-14.5)
[2018-12-18 14:50] LABS: ALBUMIN 2.8 g/dL (3.4-5.0); ALKALINE PHOSPHATASE 82 U/L (46-116); ALT (SGPT) 22 U/L (10-68); BILIRUBIN - TOTAL 0.76 mg/dL (0.2-1.3); CALC OSMOLALITY 294 mosm/kg (275-300); CALCIUM 8.5 mg/dL (8.5-10.1); CARBON DIOXIDE 24.9 mmol/L (21.0-32.0); CHLORIDE - SERUM 108 mmol/L (98-107); DIGOXIN 0.36 ng/mL (0.90-2.00); GLUCOSE 162 mg/dL (74-106); POTASSIUM - SERUM 4.1 mmol/L (3.5-5.1); PROTEIN - SERUM 6.2 g/dL (6.4-8.2); SODIUM 143 mmol/L (136-145); UREA NITROGEN 29 mg/dL (7-18); eGFR NON AFRICAN AMERICAN 75 mL/min (90-120)
[2018-12-18 20:00] VITALS: BP 130/65
--- NOTE | 2018-12-18 23:38 | NUR ---
B.) PT IS ALERT AND ORIENTED TO SELF ONLY. HIS SPEECH IS GARBLED. HE IS RECIEVED IN HIS ANURAG-CHAIR. HE IS PLEASANT WHEN SPOKEN TOO BUT OFTEN IS WITHDRAWN. I.) PROVIDED PM MEDICATION. R.) COMPLIANT WITH ALL MEDICATION. P.) CONTINUE PLAN OF CARE
--- NOTE | 2018-12-19 07:24 | NUR ---
B) The patient is sitting in the hallway, he is sleeping. He has poor insight into his situation. He does say a few words. He has not shown aggression at this time. I) Provide prescribed meds. R) The patient does not follow simple direction. P) Continue POC.
[2018-12-19 08:00] VITALS: BP 90/71
--- NOTE | 2018-12-19 15:24 | NUR ---
The patient has a skin tear to the right hand with a dressing. Dressing is soiled. Cleansed the skin tear area and changed the dressing. Shaved and cleansed the patient's face.
[2018-12-19 21:05] VITALS: BP 136/64
--- NOTE | 2018-12-19 21:15 | NUR ---
B.) PT IS ALERT WHEN STIMULATED, HE IS ORIENTED TO SELF ONLY. HE IS RECIEVED IN HIS ANURAG-CHAIR. I.) PROVIDED PM MEDICATIONS. R.) COMPLIANT WITH ALL MEDICATIONS. P.) CONTINUE PLAN OF CARE
[2018-12-20 08:00] VITALS: BP 124/68
--- NOTE | 2018-12-20 17:00 | NUR ---
GRANDSON CAME TO VISIT DURING VISITATION TIME. DAUGHTER AND SPOUSE CALLED TO GET UPDATE ON PATIENT'S CONDITION.
--- NOTE | 2018-12-20 17:19 | NUR ---
RECEIVED PT IN DINING ROOM AT B'FAST, APPETITE FAIR FOR B'FAST REQUIRING FEEDING. HOWEVER, BY SUPPER, PATIENT WAS ABLE TO FEED SELF AND APPETITE WAS GOOD. COMPLIANT WITH MEDS. COOPERATIVE, NO AGGRESSION NOTED. CONT POC DIRECTED.
--- NOTE | 2018-12-20 19:13 | NUR ---
RECEIVED IN DAYROOM. SITTING IN A CHAIR AT THE TABLE. NOT SOCIALIZING. CONFUSED. CALM AND COOPERATIVE WITH CARE AND ASSESSMENT. REDIRECT AND REORIENT NEEDED. CONTINUES TO SIT CALMLY AT TABLE. CONTINUE PLAN OF CARE
[2018-12-20 22:56] VITALS: BP 101/60
--- NOTE | 2018-12-21 06:41 | NUR ---
CONVOLUTED FOAM CHAIR PAD PLACED UNDER PATIENT IN CHAIR.
[2018-12-21 08:00] VITALS: BP 153/72
--- NOTE | 2018-12-21 10:00 | NUR ---
RECEIVED PT IN DINING ROOM AT B'FAST TIME, AWAKE, APPETITE POOR, COOPERATIVE WITH MEDS WITH 100% COMPLIANCE NOTED. NO AGGRESSION NOTED. SPOUSE CALLED THIS MORNING FOR PATIENT UPDATE. CONT POC DIRECTED. PT CONFUSED. DRESSING TO WOUNDS CDI. REPOSITIONED IN RECLINER FOR COMFORT.
--- NOTE | 2018-12-21 12:27 | PN ---
PATIENT:JOSE ALFREDO RAJPUT MEDICAL RECORD: [id number] LOCATION:[facility] ADMISSION DATE: 12/10/18 PROGRESS NOTE DATE OF SERVICE: 12/12/2018 SUBJECTIVE: Mr. Rajput is an 88-year-old male, former patient here who was readmitted because he was wandering, increasing confusion, slinging his own feces, combative with ADLs. On interview today, he is calm, pleasant, quite confused, but eating well. Nursing reports that he is exit seeking. He does not lack assist with toileting or any care, but will redirect. He also will dig in the trash if he is not monitored closely. He slept 8.75 hours; eating 50, 65, and 100% and last bowel movement on the . OBJECTIVE: LATEST VITAL SIGNS: 98.1, 74, 18, 120/51 and 99%. ASSESSMENT: Unchanged. PLAN: Continue current treatment plan. Continue to assess the patient's aggression and agitation versus side effects of medication. Case discussed with nursing. Chart reviewed and the patient interviewed. TRANSINT:[id number] Voice Confirmation ID: [id number] DOCUMENT ID: [id number] JOSE F AQUINO MD at 1227 CC: [id number] DICTATION DATE: 12/12/18 1343 JUVENILE CORRECTIONAL OFFICER: 12/12/18 1513 ADM IN [place] [id number] [place] [address]
--- NOTE | 2018-12-21 12:27 | PSY ---
PATIENT NAME:JOSE ALFREDO RAJPUT MEDICAL RECORD: [id number] : 32 LOCATION:[facility] ADMISSION DATE: 12/10/18 ACCOUNT: [id number] PSYCHIATRIC EVALUATION DATE OF EVALUATION: 12/11/18 HISTORY OF PRESENT ILLNESS: Mr. Rajput is an 88-year-old male readmitted was here back in late June, early August for similar symptomatology. He is wandering. He has increased confusion. He apparently is slinging his feces and combative with ADLs a very similar presentation from previous. PAST PSYCHIATRIC HISTORY: Again he has had 1-2 admissions here in the past, been diagnosed with dementia. 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 ALLERGIES: No known drug allergies. MEDICATIONS: List includes vitamin D 2000 units daily, Restoril 7.5 mg at bedtime, Namenda 10 mg b.i.d., melatonin 9 mg at bedtime, Megace 40 mg b.i.d., Aricept 10 mg at bedtime, perphenazine 4 mg q.i.d., Senokot 1 tab daily, digoxin 0.125 mg. SOCIAL HISTORY: He lives with his . According to her, he is at [facility]. FAMILY HISTORY: Unknown at the moment. MENTAL STATUS EXAMINATION: GENERAL: This is an 88-year-old male, dressed and groomed, casually in sweats. He was self-feeding with his hands. Nursing reports he has had a recent small fall with scraped elbow. He did acknowledge my presence, but he did not quit eating nor did he answer any of my questions. He did look at me. Therefore, his speech, thought process and thought content could not be ascertained. LATEST VITAL SIGNS: Pulse of 89, respirations 20, blood pressure this morning at 09:36 is 78/60 that is without his meds and pulse ox of 99%. IMPRESSION: Advanced major neurocognitive disorder of the Alzheimer's type with behavioral disturbances, prostate problems and pacemaker. PLAN: We will admit to Geropsych unit, appropriate medical care, general medical care for his chronic issues. We will get further information from family once the patient's behaviors and develop a treatment plan that best encompasses the patient's medical, physical and psychiatric needs. Case discussed with nursing. Chart was reviewed and the patient interviewed. TRANSINT:[id number] Voice Confirmation ID: [id number] DOCUMENT ID: [id number] JOSE F AQUINO MD at 1227 CC: [id number] DICTATION DATE: 12/11/18 1232 DIRECTOR OF REVENUE CYCLE MANAGEMENT: 12/11/18 1333 ADM IN [place] [id number] [place] [address]
--- NOTE | 2018-12-21 12:28 | PN ---
PATIENT:JOSE ALFREDO RAJPUT MEDICAL RECORD: [id number] LOCATION:[facility]112 ADMISSION DATE: 12/10/18 PROGRESS NOTE DATE OF SERVICE: 12/14/2018 SUBJECTIVE: Mr. Rajput is an 88-year-old male with advanced major neurocognitive disorder to the point he is alert and oriented times zero. He to this point has been at a nursing care assisted living and has had intermittent episodes such as he has had this morning of aggression, agitation, spitting and therefore very difficult to control. workers' compensation claims examiner has begun the conversation with daughter and about transfer to a nursing facility as he is way beyond assisted living capacity. On interview, the patient was somewhat sedated from a recent p.r.n. that had been given. OBJECTIVE: His latest vital signs are 97.7, 80, 18, 143/63, and 95%. He slept 8.25 hours. No breakfast, 25% lunch, and 25% dinner. Last bowel movement was on 12/12/2018. ASSESSMENT: Unchanged. PLAN: I am going to move the perphenazine from 4 mg q.i.d. to 8 mg in the morning and supper primarily to decrease the amount of possible unpleasant interactions between he and staff and make sure that the actual dosing of medication has more likelihood of getting in being effective. We will assess response to this and if necessary, might add a mood stabilizer. Case discussed with nursing, chart reviewed and patient interviewed. TRANSINT:[id number] Voice Confirmation ID: [id number] DOCUMENT ID: [id number] JOSE F AQUINO MD at 1228 CC: [id number] DICTATION DATE: 12/14/18 1153 CONTINUING EDUCATION DEAN: 12/14/18 1316 ADM IN [place] [id number] [place] [address]
--- NOTE | 2018-12-21 12:28 | PN ---
PATIENT:JOSE ALFREDO RAJPUT MEDICAL RECORD: [id number] LOCATION:[facility] ADMISSION DATE: 12/10/18 PROGRESS NOTE DATE OF SERVICE: 12/17/2018 SUBJECTIVE: Mr. Rajput is an 88-year-old male who came in secondary to confusion, agitation, wandering, simply unable to be taken care of at the assisted living and needs a higher level of care. When he first came in, he was ambulatory, exit seeking, but very quickly without any significant medication changes, he has become increasingly sedated and unable to wake him in the last 3 days of interview despite the fact that I cut his psychotropic in half yesterday and his medicines were held this morning. He is sleeping 8.75 hours. Eating 15%, 75%, and 0% yesterday. The last bowel movement on . OBJECTIVE: VITAL SIGNS: 97.5, 64, 18, 110/71, and 98%. ASSESSMENT: Unchanged. PLAN: I am not going to hold the perphenazine for now. Clearly, he was not getting this medication before as he is rapidly becoming sedated with it again without medication changes. We will hold and then reintroduce at a much more gradual pace commensurate with his symptomatology. Case discussed with nursing, chart reviewed, and the patient interviewed. TRANSINT:[id number] Voice Confirmation ID: [id number] DOCUMENT ID: [id number] JOSE F AQUINO MD at 1228 CC: [id number] DICTATION DATE: 12/17/18 1522 GRID TRIMMER: 12/17/18 2215 ADM IN [facility] [address] [place] [address]
--- NOTE | 2018-12-21 12:28 | PN ---
PATIENT:JOSE ALFREDO RAJPUT MEDICAL RECORD: [id number] LOCATION:[facility]112 ADMISSION DATE: 12/10/18 PROGRESS NOTE DATE OF SERVICE: 12/15/2018 SUBJECTIVE: Mr. Rajput is an 88-year-old male who was admitted secondary to wandering, confused, combative. The patient is clearly quite advanced in his dementia. He is alert and oriented times zero. He at times will become combative. His intake is only 25, 0, and 0 yesterday and then 0, 25, and 25 the day before. He was basically disrobed in the day room and has been pulling off clothes according to nursing staff as soon as they are put on him. He slept 7.75 hours last night. He has not been combative in the last but extremely confused. His last bowel movement was on the . He barely responded in my attempt to interview today. OBJECTIVE: VITAL SIGNS: 98.4, 82, 17, 170/90, 94%. ASSESSMENT: Unchanged. PLAN: Trying to find a line between medicating his combative behaviors and possible effects on his intake. For now, we will stay at this medication regimen, but if intake continues to be low, we will have to back off and see if we can get a better balance between sedation/intake and agitation. Case discussed with nursing, chart reviewed. The patient interviewed. TRANSINT:[id number] Voice Confirmation ID: [id number] DOCUMENT ID: [id number] JOSE F AQUINO MD at 1228 CC: [id number] DICTATION DATE: 12/15/18 1414 SCREEN STRETCHER: 12/15/18 2331 ADM IN [facility] [address] [place] [id number]
--- NOTE | 2018-12-21 12:28 | PN ---
PATIENT:JOSE ALFREDO RAJPUT MEDICAL RECORD: [id number] LOCATION:[facility]112 ADMISSION DATE: 12/10/18 PROGRESS NOTE DATE OF SERVICE: 12/18/2018 SUBJECTIVE: Mr. Rajput is an 88-year-old male who was admitted because of wandering, confusion. Notably, he was ambulatory when he came, but for the last several days despite increasingly lower doses of medications, he is still quite sedated, although nursing states that the patient did fight somewhat with nighttime ADLs. On interview, the patient again asleep. He is eating, refused breakfast, 100% of lunch, and 5% of dinner. His last bowel movement on the . His latest vital signs are 99.3, 77, 20, 149/66, and 98%. ASSESSMENT: Unchanged. PLAN: We will continue to hold any sedating meds and today we will hold temazepam as well. We also will get a repeat UA. Case discussed with nursing. Chart reviewed and the patient interviewed. TRANSINT:[id number] Voice Confirmation ID: [id number] DOCUMENT ID: [id number] JOSE F AQUINO MD at 1228 CC: [id number] DICTATION DATE: 12/18/18 1302 REAL ESTATE LOAN OFFICER: 12/18/18 1333 ADM IN [place] [id number] [place] [id number]
--- NOTE | 2018-12-21 12:28 | PN ---
PATIENT:JOSE ALFREDO RAJPUT MEDICAL RECORD: [id number] LOCATION:[facility]112 ADMISSION DATE: 12/10/18 PROGRESS NOTE DATE OF SERVICE: 12/16/2018 SUBJECTIVE: Mr. Rajput is an 88-year-old male who came from an assisted living because he was wandering, confused and at this point, simply needs a higher level of care; however, it is noted despite not really any medication changes, the patient has been getting increasingly sedated and while he was here in the beginning was ambulating on his own, now is sleeping heavily and when he is awake, he does tend to try to take off his clothes, as was the case yesterday, he was quite sedated and got little interview from him. He slept 8.75 hours last night, eating 50%, 75%, and 0%. Last bowel movement on . OBJECTIVE: VITAL SIGNS: Latest, 98.4, 56, 17, 175/74, and 95%. ASSESSMENT: Unchanged. PLAN: I suspect that he was not getting a lot of his medications at the long-term as again there has been very little changes and he has gone from walking to fairly sedated, we will decrease his perphenazine from 8 b.i.d. to 4 mg b.i.d. and gradually titrate back to assess the best dose to benefit ratio. Case discussed with nursing, chart reviewed and patient interviewed. TRANSINT:[id number] Voice Confirmation ID: [id number] DOCUMENT ID: [id number] JOSE F AQUINO MD at 1228 CC: [id number] DICTATION DATE: 12/16/18 1030 MD PSYCHIATRY: 12/16/18 192 ADM IN [facility] [address] [place] [address]
--- NOTE | 2018-12-21 20:18 | NUR ---
RECEIVED IN DAYROOM. SITTING IN A RECLINING CHAIR. CALM AND COOPERATIVE WITH CARE AND ASSESSMENT. REDIRECT AND REORIENT NEEDED. RESTING IN A RECLINER OUTSIDE OF NURSES STATION AT THIS TIME. CONTINUE PLAN OF CARE
[2018-12-21 20:22] VITALS: BP 130/68
--- NOTE | 2018-12-22 07:46 | NUR ---
SHEARING NOTED TO BUTTOCK AND LEFT LOWER CHEEK OF BUTTOCK. EGG CRATE IN PLACE IN RECLINING CHAIR. FEET ELEVATED FOR CIRCULATION. T/R Q 2 AND PRN FOR COMFORT AND PRESSURE RELIEF. WILL CPOC.
[2018-12-22 08:00] VITALS: BP 138/84
--- NOTE | 2018-12-22 09:56 | PN ---
PATIENT:JOSE ALFREDO RAJPUT MEDICAL RECORD: [id number] LOCATION:[facility]112 ADMISSION DATE: 12/10/18 PROGRESS NOTE DATE OF SERVICE: 12/21/2018 SUBJECTIVE: Mr. Rajput is an 88-year-old male who was wandering, confused, difficult to redirect at his memory care facility. Almost since the beginning when patient was restarted on what was called in to assess his home meds, the patient has been increasingly more sedated and even as I have taken off medications he remains intermittently so. The last possible sedating meds has been the melatonin at 9 mg. On interview, the patient will open his eyes, but no real response. He seems to be shaking somewhat. Nursing has found pressure ulcers and medicine is addressing this as the patient has been supine for several days now. The patient slept 8+ hours. No breakfast, 3% of lunch, and 30% of supper. His albumin was lower on the . Last bowel movement on the . OBJECTIVE: VITAL SIGNS: His vital signs are 98.4, 82, 19, 153/72, and 99%. ASSESSMENT: Unchanged. PLAN: I am going to go on the assumption that he really was not getting meds or many at all [facility]. I am going to redraw a digoxin level to make sure as he has been getting it here that he is not getting toxic. I am going to put his 9 mg of melatonin on hold as the last possible seemingly sedating agent, although he is on Namenda and Aricept. Case discussed with nursing, chart was reviewed, and the patient interviewed. TRANSINT:[id number] Voice Confirmation ID: [id number] DOCUMENT ID: [id number] JOSE F AQUINO MD at 0956 CC: [id number] DICTATION DATE: 12/21/18 1115 SPEECH CORRECTION CONSULTANT: 12/21/18 1300 ADM IN [place] [id number] [place] [address]
--- NOTE | 2018-12-22 09:56 | PN ---
PATIENT:JOSE ALFREDO RAJPUT MEDICAL RECORD: [id number] LOCATION:[facility]112 ADMISSION DATE: 12/10/18 PROGRESS NOTE DATE OF SERVICE: 12/21/2018 SUBJECTIVE: Mr. Rajput is an 88-year-old male who was admitted because he was wandering, confused, had skin tear on his right hand, remarkably basically without medication changes he became progressively quickly more sedated. The patient despite the fact that he is now off perphenazine and temazepam is still quite sedated, although he does wake for meals. He slept 8 hours, eating 70%, 70%, and 100%. Last bowel movement on . ASSESSMENT: Unchanged. PLAN: We will continue to monitor for sedation. I suspect that medication compliance was quite poor at his nursing facility and will try to find a better balance between medication, true medication dosages and gait and agitation. Case discussed with nursing, chart reviewed. The patient interviewed. TRANSINT:[id number] Voice Confirmation ID: [id number] DOCUMENT ID: [id number] JOSE F AQUINO MD at 0956 CC: [id number] DICTATION DATE: 12/21/18 1242 SUPERVISOR CUSTOMER COMPLAINT SERVICE: 12/21/18 2158 ADM IN [facility] [address] [place] [address]
--- NOTE | 2018-12-22 10:49 | NUR ---
Nutrition Follow Up: Regular diet, Ensure w/ meals Sig Meds: MEGACE PO intake: 30% avg x 9 meals BM x 2 today Wt: Loss of 0.8 lbs 12/13/2018: 148.2 lbs 12/17/2018: 147.4 lbs Encourage PO intake. Continue reg diet w/ ensure TID and Megace Clinical Dietitian Following
--- NOTE | 2018-12-22 14:25 | NUR ---
PT IS AWAKE AND ALERT TO PERSON ONLY. CALM AND COOPERATIVE WITH ASSESSMENT. MED COMPLIANT. PT IS VERY CONFUSED. REDIRECT AND REORIENT NEEDED. NO BEHAVIORS NOTED AT THIS TIME. EGG CRATE IN RECLINING CHAIR FOR COMFORT AND TO INCREASE CIRCULATION. BUTTOCK PASTE APPLIED Q 2 AND PRN. T/R Q 2 AND PRN. CHAIR ALARM IN RECLINING CHAIR FOR SAFETY PRECAUTIONS. MED COMPLIANT. FALL PRECAUTIONS IN PLACE. WILL CONTINUE TO MONITOR Q 15 MINUTES FOR SAFETY. WILL CPOC.
--- NOTE | 2018-12-22 19:51 | NUR ---
RECEIVED IN HALLWAY. SITTING IN A CRECLINING CHAIR. CALM AND COOPERATIVE WITH CARE AND ASSESSMENT. REDIRECT AND REORIENT NEEDED. SITTING CALMLY IN RECLINER AT THIS TIME. CONTINUE PLAN OF CARE
[2018-12-23 04:19] VITALS: BP 140/72
[2018-12-23 08:25] VITALS: BP 134/54
--- NOTE | 2018-12-23 15:37 | NUR ---
PT IS AWAKE AND ALERT TO PERSON ONLY. CALM AND COOPERATIVE WITH ASSESSMENT. REDIRECT AND REORIENT NEEDED. PT HAS SHEARING NOTED TO BUTTOCK AND LEFT CHEEK OF BUTTOCKS. EGG CRATE IN PLACE FOR COMFORT AND PRESSURE RELIEF. PT LEGS ELEVATED FOR CIRCULATION. FALL PRECAUTIONS IN PLACE. ALARM IN PLACE AND WORKING IN RECLINING CHAIR. WILL CPOC.
[2018-12-23 20:19] VITALS: BP 109/56
--- NOTE | 2018-12-23 21:32 | NUR ---
UPON PLACING PT IN HIS BED NOTED 6 2.5 X 3 CM SKIN TEARS LOCATED ON HIS LEFT BUTTOCK AREA. LEFT OPEN TO AIR TONITE WILL CONTINUE TO MONITOR AND DRESS IN THE MORNING.
--- NOTE | 2018-12-23 21:39 | NUR ---
B.) PT IS ASLEEP BUT EASY TO AWAKEN. HE IS RECIEVED IN HIS WHEELCHAIR. HIS AFFECT IS BLUNTED BUT HE RESPONDS TO VERBAL STIMULI. I.) PROVIDED PM MEDICATIONS. R.) COMPLIANT WITH ALL MEDICATIONS. P.) CONTINUE PLAN OF CARE
[2018-12-24 08:49] VITALS: BP 147/71
--- NOTE | 2018-12-24 10:14 | NUR ---
SPOKE WITH PT'S SON IN LAW RAQUEL WILSON TO CONFIRM FAMILY MEETING TODAY AT 330. AFTER FAMILY MEETING SW WILL CALL ALAYNA SEGUNDO TO DO ASSESSMENT ON PT TO SEE IF THEY WILL BE ABLE TO MEET PT'S NEED AT THE LEVEL OF CARE HE IS REQUIRING. PT'S THOMAS VOICED UNDERSTANDING OF CONVERSATION AND CONFIRMED MEETING TIME.
--- NOTE | 2018-12-24 10:26 | NUR ---
RECEIVED PT IN DINING ROOM FOR B'FAST, ALERT, CALM, COOPERATIVE, CONFUSED, ALERT TO SELF. MEDS ADMIN PER ORDERS, CRUSHED AND MIXED WITH PUDDING. ABRASIONS TO BUTTOCKS CLEANED AND COVERED WITH MEPILEX BORDER. PHYSICIAN NOTIFIED OF ITCHING AND BENADRYL CREAM ORDERED AND APPLIED TO AREA TO PREVENT FURTHER SCRATCHING.
--- NOTE | 2018-12-24 12:43 | NUR ---
Team Treatment Review: Diet: Regular diet, Ensure with meals PO intake: 34% x 9 meals Snack: 83% x 3 snacks Weight: (-0.8 lbs) 12/13/2018: 148.2 lbs 12/20/2018: 147.4 lbs BM: x 3 on 12/22 Sig Meds: Vit D, Megace Labs: No new sig labs Continue currrent diet, ensure w/ meals, and megace. Encourage PO intake. Clinical Dietitian to continue following
--- NOTE | 2018-12-24 14:53 | PN ---
PATIENT:JOSE ALFREDO GREER MEDICAL RECORD: [id number] LOCATION:[facility]112 ADMISSION DATE: 12/10/18 PROGRESS NOTE DATE OF SERVICE: 12/23/2018 SUBJECTIVE: The patient was seen for hospital rounds and his case was discussed with staff. He has no new complaint. OBJECTIVE: The patient denies intent to harm himself or others. He generally tolerates his medicines well. He unfortunately is not eating very well. ASSESSMENT: Dementia. PLAN: Current medicines have been reviewed and will be maintained. His long-term prognosis is guarded. Brief supportive and educational interventions were made. TRANSINT:[id number] Voice Confirmation ID: [id number] DOCUMENT ID: [id number] TONI PRATER MD at 1453 CC: [id number] DICTATION DATE: 12/23/18 1557 HIGH SCHOOL GUIDANCE COUNSELOR: 12/23/18 9565 ADM IN [facility] [address] [place] [address]
[2018-12-24 20:53] VITALS: BP 136/66
--- NOTE | 2018-12-25 03:19 | NUR ---
B) Patient is alert and oriented to self, very confused, I) Administered scheduled medications as orderred, monitored for safety R) Mediation compliant, no behaviors P) Continue plan of care.
--- NOTE | 2018-12-25 10:50 | NUR ---
THIS NURSE FAXED PAPERWORK TO [facility] FOLLOW[facility] ORDERS FAXED.
--- NOTE | 2018-12-25 10:52 | NUR ---
facility came to evaluate the pt. pt was eating and she asked the staff the reason for us feeding the pt. staff explained that the pt shakes so badly that it is easier on him if we feed him. she requested medication list and nurses notes. explained to her that the medication list is not complete but that we would be happy to give her a copy and send an updated copy when he discharges. she stated, "no that is fine. we can wait." she did not speak to the pt or do any further evaluation.
--- NOTE | 2018-12-25 11:29 | NUR ---
PAPERWORK DID NOT GO THROUGH COMPLETE. REFAXED TO [facility]. A FACESHEET AND ORDER WAS FAXED AT THIS TIME.
--- NOTE | 2018-12-25 11:37 | NUR ---
[facility] CAME TO EVALUATE PATIENT FOR DISCHARGE BACK TO THE FACILITY. SHE ASKED IF THE PT FEED HIMSELF AND STAFF REPORTED WE HELP FEED THE PATIENT DUE HIM SHAKING ALOT THAT IT WAS BETTER IF THE STAFF ASSISTED WITH FEEDING. SHE REQUESTED NURSE NOTES AND A MAR. NURSE EXPLAINED THE MAR WOULD NOT BE UPDATED UNTIL DISCHARGE BUT WE WOULD GIVE HER A COPY NOW AND WHEN DISCHARGE OCCURS. SHE REFUSED. NURSE DIRECTED HER TO THE TABLE SAW OPERATOR TO SPEAK WITH HER IN REGARDS TO THE PAPERWORK. SHE DID ASK A DISCHARGE DATE. STAFF EXPLAINED THERE WAS NO DATE SET AT THIS TIME. SHE SPOKE WITH DIRECTOR.
--- NOTE | 2018-12-25 12:51 | NUR ---
RECEIVED PATIENT IN DINING ROOM FOR B'FAST, ALERT, CALM, CONFUSED. ORIENTED TO SELF. NO AGGRESSION NOTED. DIFFICULT TO TRANSFER TO PATIENT WORKING AGAINST STAFF DUE TO FEAR OF FALLING. OTHERWISE, VERY COOPERATIVE WITH CARE. CONT POC DIRECTED.
--- NOTE | 2018-12-25 14:11 | NUR ---
[facility] CALLED IS UNABLE TO REACH THE DAUGHTER 3X PHONE CALLS AND VOICEMAILS. NUMBER FOR THE GIVEN TO [facility]. ADDITONAL PAPERWORK FAXED WELL. PSYCH CONSUT AND PHYSICIAN CONSULT AND MAR.
--- NOTE | 2018-12-25 14:28 | PN ---
PATIENT:JOSE ALFREDO GREER MEDICAL RECORD: [id number] LOCATION:[facility]112 ADMISSION DATE: 12/10/18 PROGRESS NOTE DATE OF SERVICE: 12/24/2018 SUBJECTIVE: The patient's case was discussed with staff. He has no new complaint. OBJECTIVE: The patient is in good behavioral control, but quite impaired cognitively. ASSESSMENT: Dementia. PLAN: Current medicines have been reviewed and will be maintained. The patient is being referred to hospice. His long-term prognosis is unfortunately poor. TRANSINT:[id number] Voice Confirmation ID: [id number] DOCUMENT ID: [id number] TONI PRATER MD at 1428 CC: [id number] DICTATION DATE: 12/24/18 1458 PACKAGE SORTER: 12/25/18 0010 ADM IN [facility] [address] [place] [address]
[2018-12-25 14:55] VITALS: BP 136/66
[2018-12-25 20:05] VITALS: BP 121/67
--- NOTE | 2018-12-25 20:13 | NUR ---
SPOKE WITH PATIENT . SHE WANTED TO KNOW HOW HIS DAY WAS GOING AND IF HE WAS AMBULATING. NURSE EXPLAINED PT DAY AND THAT HE WAS NOT AMBULATING AT THIS TIME. SHE STATED "OH I HOPE HE STARTS WALKING SOON." SHE THANKED ME.
--- NOTE | 2018-12-25 22:38 | NUR ---
SPOKE WITH AARBELLA DARDEN AND GAVE UPDATE ON PATIENT CONDITION.
--- NOTE | 2018-12-25 23:33 | NUR ---
REC'D SITTING IN THE DAYROOM. PATIENT HAD TAKEN HIS CLOTHES OFF. DID NOT ACKNOWLEDGE NURSE WHEN BEING SPOKE TO. APPEARS IF PATIENT IS TRYING TO SAY SOMETHING BUT IS UNABLE TO VERBAL WORDS. PICKS AT HIS DRESSINGS. ADMINISTER MEDS AND MONITOR COMPLIANCE. ATTEMPT TO ENGAGE PATIENT IN CONVERSATION. MED COMPLIANT. DOES NOT ACKNOWLEDGE STAFF WHEN TALKING WITH HIM. DOES NOT MAKE EYE CONTACT. PICKS AT HIS COVERS, DRESSINGS AND CLOTHES WITHOUT ACKNOWLEDGING ANYTHING ABOUT HIS SURROUNDINGS. CONTINUE POC AND PROVIDE SAFE ENVIRONMENT.
[2018-12-26 11:23] VITALS: BP 136/65
--- NOTE | 2018-12-26 12:17 | PN ---
PATIENT:JOSE ALFREDO GREER MEDICAL RECORD: [id number] LOCATION:[facility]112 ADMISSION DATE: 12/10/18 PROGRESS NOTE DATE OF SERVICE: 12/25/2018 SUBJECTIVE: The patient's case was discussed with staff. He has no new complaint. OBJECTIVE: The patient is disruptive, but not significantly agitated. He is quite confused and he continues to have severe memory impairment. ASSESSMENT: Dementia. PLAN: Given the patient's overall condition, which has been discussed numerous times through this particular record, it is my opinion that hospice and comfort care is the most reasonable approach to meet his needs. As I understand that, at this point, he is still being considered by hospice and as it is getting late on Friday afternoon, I am doubtful that he is going to be transitioned to that program before Friday. TRANSINT:[id number] Voice Confirmation ID: [id number] DOCUMENT ID: [id number] TONI PRATER MD at 1217 CC: [id number] DICTATION DATE: 12/25/18 1435 FURNITURE MANAGER: 12/25/18 1447 ADM IN [facility] [address] [place] [address]
--- NOTE | 2018-12-26 13:11 | NUR ---
PT IS AWAKE TO PERSON ONLY. CALM AND COOPERATIVE WITH ASSESSMENT. PT IS MED COMPLIANT. SHEARING NOTED TO BUTTOCKS AND LEFT CHEEK OF BUTOCKS. EGG CRATE IN RECLINING CHAIR FOR COMFORT AND PRESSURE RELIEF. BILATERAL FEET ELEVATED FOR CIRCULATION. NO BEHAVIORS NOTED. NO S/SX OF PAIN OR DISCOMFORT NOTED. ALARM PLACEDIN RECLINING CHAIR FOR SAFETY PRECAUTIONS. ALARM ON AND WORKING. FALL PRECAUTIONS IN PLACE. WILL CPOC.
--- NOTE | 2018-12-26 21:28 | NUR ---
SITTING IN DAYROOM. REFUSED VS THIS PM. DOES NOT RESPOND TO VERBAL INTERACTION WITH STAFF. DOES NOT ACKNOWLEDGE THEIR PRESENCE. NO EYE CONTACT. BUSY WITH HIS HANDS FEELING OF COVERS, PULLING AT CLOTHES OR PULLS AT DRESSINGS. DOES NOT APPEAR TO HEAR INSTRUCTIONS FROM STAFF. ADMINISTER MEDS Q SHIFT AND MONITOR COMPLIANCE. REORIENT NEEDED. MED COMPLIANT. POOR REORIENTATION. PT DOES NOT ACKNOWLEGE STAFF TALKING WITH HIM. CONTINUE POC AND PROVIDE SAFE ENVIRONMENT.
[2018-12-27 08:41] VITALS: BP 151/67
--- NOTE | 2018-12-27 10:51 | PN ---
PATIENT:JOSE ALFREDO GREER MEDICAL RECORD: [id number] LOCATION:[facility] ADMISSION DATE: 12/10/18 PROGRESS NOTE DATE OF SERVICE: 12/26/2018 SUBJECTIVE: The patient's case was discussed with staff. He has no new complaint. OBJECTIVE: The patient is partially oriented and not aggressive. He is still not eating adequately. He is receiving Megace. He did sleep well last night. ASSESSMENT: No change in diagnoses. PLAN: Current medicines have been reviewed. Long-term prognosis is guarded. TRANSINT:[id number] Voice Confirmation ID: [id number] DOCUMENT ID: [id number] TONI PRATER MD at 1051 CC: [id number] DICTATION DATE: 12/26/18 1222 TELEPHONIC CASE MANAGER: 12/26/18 1250 ADM IN [facility] [address] [place] [address]
[2018-12-27] MEDS ORDERED: PERPHENAZINE2 MG PO (11:33)
[2018-12-27] MEDS ORDERED: BENADRYL 2% CRE30 GM TOPICAL (11:34)
[2018-12-27] MEDS ORDERED: MELATONIN 3 MG1 TAB PO (11:34)
--- NOTE | 2018-12-27 13:55 | NUR ---
PT IS AWAKE AND ALERT TO PERSON ONLY. CALM AND COOPERATIVE WITH ASSESSMENT. MED COMPLIANT. SHEARING NOTED TO BUTTOCKS AND LEFT CHEEK OF BUTTOCKS. EGG CRATE IN PLACE FOR PRESSURE RELIEF AND COMFORT. ALARM IN PLACE FOR SAFETY PRECAUTIONS. REDIRECT AND REORIENT NEEDED. WILL CPOC.
--- NOTE | 2018-12-27 19:59 | NUR ---
RECEIVED IN DAYROOM. SITTING IN A RECLINER WITH EYES CLOSED. CALM AND COOPERATIVE WITH CARE AND ASSESSMENT. ENCOURAGE TO EXPRESS NEEDS. RESTING IN RECLINER OUTSIDE OF NURSES STATION AT THIS TIME. CONTINUE PLAN OF CARE
[2018-12-27 21:33] VITALS: BP 137/85
[2018-12-28 08:00] VITALS: BP 148/79
--- NOTE | 2018-12-28 09:57 | NUR ---
JESSIE SPOKE WITH PT'S RAQUEL GUZMAN, THE FAMILY HAS DECIDED AFTER SPEAKING TO [facility] THAT THEY WILL WAIT ON [facility]'S EVALUATION TO TALK FURTHER ABOUT HOSPICE. JESSIE CONTACTED [facility] TO INFORM THEM OF FAMILY'S DECISION. JESSIE ALSO CALLED [facility]ICE AND SECOND TIME LEFT VOICEMAIL WITH PERSONAL NUMBER TO ASK FOR ASSESSMENT FROM [facility] TO BE DONE TODAY. JESSIE STATED PT WAS READY FOR DISCHARGE AND ORDERS WERE IN FOR TODAY.
--- NOTE | 2018-12-28 10:02 | NUR ---
JESSIE CALLED [facility]LAY[facility] SEGUNDO AND STATED PT WAS READY FOR ASSESSMENT AND DISCHARGE TODAY. ALAYNA SEGUNDO EMPLOYEE STATED DON WAS IN A MEETING AT THIS TIME. JESSIE STATED PLEASE GIVE HER A MESSAGE THAT C.B. WAS READY FOR HIS ASSESSMENT AND DISCHARGE.
--- NOTE | 2018-12-28 10:59 | NUR ---
RECEIVED PT IN DINING ROOM FOR B'FAST, ALERT, CALM, COOPERATIVE, NO BEHAVIORAL ISSUES NOTED. MEDS ADMIN PER ORDERS WITH COMPLETE COMPLIANCE NOTED. CONT POC DIRECTED.
--- NOTE | 2018-12-28 15:02 | PN ---
PATIENT:JOSE ALFREDO GREER MEDICAL RECORD: [id number] LOCATION:[facility] ADMISSION DATE: 12/10/18 PROGRESS NOTE DATE OF SERVICE: 12/27/2018 SUBJECTIVE: The patient's case was discussed with staff. He has no new complaint. OBJECTIVE: The patient is in good behavioral control. He has poor insight about his condition. He has not been aggressive. ASSESSMENT: Dementia. PLAN: The patient will be transitioned out of the hospital tomorrow. He is going to go to a hospice program. His long-term prognosis is unfortunately not very good. I think at this point, he is being cared for and comfortable and that is the best that can be hoped for given his overall situation. TRANSINT:[id number] Voice Confirmation ID: [id number] DOCUMENT ID: [id number] TONI PRATER MD at 1502 CC: [id number] DICTATION DATE: 12/27/18 1132 MEDICAL STENOGRAPHER: 12/27/18 1513 ADM IN [id number] [place] [address]
--- NOTE | 2018-12-28 15:24 | NUR ---
SPOKE TO SON IN LAW AND SPOUSE IN REGARDS TO PT DISCHARGING TODAY. EXPLAINED THAT DR PRATER WAS READY FOR DISCHARGE BUT THAT THE FACILITY HAD CALLED AND WANTED TO SEND SOMEONE OUT TO DO ANOTHER EVALUATION. FAMILY WANTED HOSPICE CANCELLED AND THIS WAS DONE. SPOUSE WANTED THE PT DISCHARGED TODAY TO THE CARE OF THE FAMILY. SPOKE WITH DR. PRATER AND HE AGREED WITH DISCHARGE PLAN. SPOUSE STATED THAT THEY WOULD TAKE THE PT TO ANOTHER HOSPITAL CLOSER TO THE FAMILY IF IT WAS NEEDED. PT CONTINUES TO SIT ON AN EGG CRATE AND BE TURNED EVERY 2 HOURS DUE TO SHEARING TO BUTTOCKS. PT IS RESTLESS AND REFUSES TO STAY PROPTED UP ON PILLOWS. PODIATRY CALLED TO FOLLOW UP ON CONSULT. FAMILY HAD CONCERNS IN REGARDS TO FINGERNAILS NOT BEING CLIPPED. EXPLAINED THAT WE WERE NOT SUPPOSED TO DO THIS PER POLICY AND THIS WAS THE REASON FOR THE PODIATRY CONSULT. SON IN LAW DID STATE THAT SW HAD STATED HE COULD DO THE NAILS, BUT THE UNIT DID NOT HAVE NAIL CLIPPERS BECAUSE THEY WERE BROKE WHEN THEY WERE GIVEN TO THE SON IN LAW. ALL BELONGINGS GATHERED AND PACKED FOR DISCHARGE. DISCHARGE PAPERWORK WAS FAXED TO ALAYNA SEGUNDO THIS MORNING. WILL REVIEW DISCHARGE PAPERWORK WITH FAMILY WHEN THEY ARRIVE.
--- NOTE | 2018-12-28 15:54 | NUR ---
LATE ENTRY FROM 12/24 SW MET WITH PT'S AND 6 OTHER FAMILY MEMBERS TO DISCUSS PT'S CONDITION AND DECLINE. SW EDUCATED ON THE DIFFERENT LEVELS OF CARE AND HOSPICE. SW DISCUSSED THE DIFFERENCE BETWEEN CURATIVE TREATMENT AND COMFORT CARE. ALL MEMBERS PRESENT IN MEETING VOICED UNDERSTANDING AND GAVE SW PERMISSION TO DO A HOSPICE REFERRAL. SW ALLOWED ALL VISITORS TO VISIT PATIENT AT ONCE DUE TO SOME OF THEM BEING FROM OUT OF STATE.
--- NOTE | 2018-12-28 15:58 | NUR ---
JESSIE SENT REFERRAL TO [facility] DUE TO CHERELLE FROM [place] CALLING [facility] STATING ALAYNA SEGUNDO WANTED THEM TO DO A REHAB EVALUATION ON PT. JESSIE STATED [facility] DID REHAB EVALUATION THIS MORNING AND STATED PT WAS NOT APPROPRIATE FOR A REHAB STAY. JESSIE STATED SHE WOULD SEND ALL NOTES AND REQUESTED INFORMATION.
--- NOTE | 2018-12-28 15:59 | NUR ---
JESSIE LEFT PAGE A VOICEMAIL FROM [facility] STATING [facility] ASSESSED PT AND STATED HE WAS NOT APPROPRIATE FOR A REHAB BED.
--- NOTE | 2018-12-28 17:59 | NUR ---
DRGG APPLIED AND PT TOLERATRED WELL. NO S/SX OF PAIN OR DISCOMFORT VOICED OR NOTED. WILL CPOC.
--- NOTE | 2018-12-28 18:00 | NUR ---
PT DC'D HOME WITH RAQUEL AND . ALL DC PAPERWORK DISCUSSED WITH RAQUEL. STATED " NO NEED TO DISCUSS WITH HER IF DISCUSSED WITH SON IN LAW, HIEN. THIS NURSE OFFERED TO CALL MEDICATIONS INTO PHARMACY. RAQUEL, STATED " WE DONT KNOW WHICH PHARMACY WE WANT TO USE, WE HAVE MEDS AT HOME." AGAIN THIS NURSE EXPLAINED " I WOULD BE GLAD TO CALL IN MEDICATIOSN TO ANY PHARMACY THEY DECIDED." OWEN SON IN LAW , STATED NO THANKS. ALL MEDS AND QUESTIOSN REVIEWED. ASK FAMILY SEVERAL TIMES IF HAD ANY QUESTIONS OR CONCERNS, STATED " NO." PT LEFT [facility] VIA W/C WITH NO S/SX OF DISTRESS OR DISCOMFORT VOICED OR NOTED. ALL DISCHARGE PAPERWORK SENT WITH PT AND FAMILY PRESENT AT TIME OF DISCHARGE.
--- NOTE | 2018-12-29 14:49 | PN ---
PATIENT:JOSE ALFREDO GREER MEDICAL RECORD: [id number] [facility] ADMISSION DATE: 12/10/18 PROGRESS NOTE DATE OF SERVICE: 12/28/2018 SUBJECTIVE: The patient's case was discussed with staff. He has no new complaint. OBJECTIVE: The patient is poorly oriented with very limited insight, but shows no evidence of acute or direct dangerousness and would require him to be at this level of care. ASSESSMENT: Dementia. PLAN: There are some issues regarding the patient's discharge. I refer you to the social media manager and nursing notes regarding this. From my standpoint, he is appropriate for discharge and is not appropriate for rehab. We have actually turned him down. TRANSINT:[id number] Voice Confirmation ID: [id number] DOCUMENT ID: [id number] TONI PRATER MD at 1449 CC: [id number] DICTATION DATE: 12/28/18 1607 PERSONAL DRIVER: 12/29/18 0107 DIS IN 12/28/18 [id number] [place] [address]
--- NOTE | 2019-01-01 15:03 | DS ---
PATIENT:JOSE ALFREDO GREER :32 MEDICAL RECORD: [id number] DISCHARGE SUMMARY ADMISSION DATE: 12/10/18 DISCHARGE DATE: 12/28/18 IDENTIFYING DATA: The patient is 88 years old and he is admitted to the hospital on a voluntary basis. The patient has a known history of dementia. He has been quite confused and he has [facility] the jail. Apparently, he has been combative with ADLs and has been on this particular occasion specifically throwing excrement at other people. He unfortunately is advanced in his dementia and has almost no recollection of these events. HOSPITAL COURSE: The patient was admitted to the hospital and fully evaluated from both a medical, psychological, and social standpoint. He was treated with both mood stabilizing and memory enhancing medications. He showed improvement in his behavior, but as you would expect no real improvement in his cognition, and he was subsequently transitioned back to the jail. DISCHARGE DIAGNOSES: 1. Advanced major neurocognitive disorder of the Alzheimer's type with behavioral disturbances. 2. Pacemaker. 3. Benign prostatic hypertrophy. PLAN: The patient will be maintained on current medications and at the time of discharge showed no evidence of acute or direct dangerousness to himself or others. He was generally tolerating his medications well. His long-term prognosis is guarded based upon the degenerative nature of his condition. TRANSINT:[id number] Voice Confirmation ID: [id number] DOCUMENT ID: [id number] TONI PRATER MD at 1503 CC: [id number] DICTATION DATE: 12/31/18 1457 FINAL COAT SPRAYER: 01/01/19 0706 DIS IN 12/28/18 [id number] [place] [address]
--- NOTE | 2019-02-10 12:26 | PN ---
PATIENT:JOSE ALFREDO RAJPUT MEDICAL RECORD: [id number] LOCATION:[facility] ADMISSION DATE: 12/10/18 PROGRESS NOTE DATE OF SERVICE: 12/22/2018 SUBJECTIVE: Mr. Rajput is an 88-year-old male with advanced major neurocognitive disorder who at his facility had been wandering and difficult to contain. He was admitted here and went from wandering to quite sedated without any basic medication changes. His medication has slowly been discontinued and he still continues to be nonambulatory and sedated looking, although with the discontinuation of his melatonin last night, he apparently did not sleep. Nursing has reported some developing coccyx ulceration secondary to sedation and those are being treated. We have a physical therapy consult; however, they are unable to work with him as he still totally unable to meaningfully respond to commands. UA is pending. A digoxin level came back at 0.37. His latest vitals are 97.5, 77, 17, 138/84, and 98%. He is eating 25%, 95%, and 0%. Last bowel movement on the . ASSESSMENT: Unchanged. PLAN: We will restart melatonin at a lower dose at 3 mg to see if we can get him asleep and try while balancing out his continuing obvious sedation. I have held all the sedating psychotropics at this point. Await any medicine input and UA results. Case discussed with nursing, chart reviewed and the patient interviewed. TRANSINT:[id number] Voice Confirmation ID: [id number] DOCUMENT ID: [id number] JOSE F AQUINO MD at 1226 CC: [id number] DICTATION DATE: 12/22/18955 TELETYPEWRITER OPERATOR: 12/22/18 1212 DIS IN 12/28/18 [id number] [place] [id number]
== END 2018-12-28 17:00 | disposition home or self-care (01) | DRG 57 ==
LOC: D.PSYCH 13:23
PROVIDERS: Family Medicine; ADMIT Psychiatry & Neurology Psychiatry; ATTEND Psychiatry & Neurology Psychiatry
DX: G30.9 Alzheimer's disease, unspecified (principal); F02.81 Dementia in other diseases classified elsewhere, unspecified severity, with behavioral disturbance; G47.00 Insomnia, unspecified; H91.90 Unspecified hearing loss, unspecified ear; K59.09 Other constipation; L60.3 Nail dystrophy; R63.0 Anorexia; E55.9 Vitamin D deficiency, unspecified; Z95.0 Presence of cardiac pacemaker